=== PATIENT | male | born 1945 | race Caucasian/White ===

== ENCOUNTER 2025-07-17 06:19 | Day surgery (SDC) | payer MEDICARE, SELFPAY ==
[2025-07-17 07:33] LABS: Glucose - Point of Care 103 mg/dl (70-99)
== END 2025-07-17 09:19 | disposition home or self-care (01) ==
LOC: GI 06:19
PROVIDERS: ATTENDING PHYSICIAN Specialist; FAMILY PHYSICIAN Family Medicine
DX: Z12.11 Encounter for screening for malignant neoplasm of colon (principal); K57.30 Diverticulosis of large intestine without perforation or abscess without bleeding; D12.3 Benign neoplasm of transverse colon; Z86.0101 Personal history of adenomatous and serrated colon polyps
CPT/HCPCS: 45380; 82962; 88305